=== PATIENT | female | born 1965 | race Caucasian/White ===

== ENCOUNTER → 2017-02-15 | Outpatient (CLI) | payer BC ==
[~2017-02-15] VITALS: Ht 172.7 cm; Wt 81.6 kg
[~2017-02-15] MED LIST: CALCIUM 600 +1 EAC4 PO; CLARITIN,ALAVAR10 MG PO; FLAX, FISH & B1 EACH PO; GLUCOSA-CHOND-1 EACH PO; ONE DAILY ESSE1 EACH PO; VITAMIN C1000 MG PO; VITAMIN E PO
== END | disposition home or self-care (01) ==
LOC: AMB 12:56
DX: Z12.11 Encounter for screening for malignant neoplasm of colon (principal); K63.5 Polyp of colon; K63.3 Ulcer of intestine; K59.00 Constipation, unspecified; K21.9 Gastro-esophageal reflux disease without esophagitis; J45.909 Unspecified asthma, uncomplicated; M19.90 Unspecified osteoarthritis, unspecified site; Z87.891 Personal history of nicotine dependence
CPT/HCPCS: 88305; J2250; J3010